=== PATIENT | female | born 1995 | race Caucasian/White ===

== ENCOUNTER 2019-04-27 18:34 | Outpatient (CLI) | payer MEDICAID, SELFPAY ==
--- NOTE | 2019-04-27 19:26 | XR_ITS ---
WS: [id number] CERVICAL SPINE 3 VIEWS HISTORY: BACK PAIN, NECK PAIN COMPARISON: None available. Mild straightening of the normal cervical lordosis with slight RIGHT tilting of the head. No fracture . C1 and C2 lateral masses are normally aligned. Odontoid is intact. Disc spaces and vertebral body heights are well-maintained. Soft tissues are normal. XR/XR cervical spine 2V* [id number] IMPRESSION: 1. Straightening of the normal cervical lordosis may be due to positioning or spasm. 2. No fracture.
--- NOTE | 2019-04-27 19:26 | XR_ITS ---
WS: [id number] LUMBAR SPINE: 3 VIEWS TECHNIQUE: AP, lateral and L5-S1 spot. HISTORY: BACK PAIN, NECK PAIN COMPARISON: None available. 5 nonrib-bearing vertebral bodies. Lumbar vertebra are normally aligned. No loss of disc space or vertebral body height. SI joints are symmetric bilaterally. No soft tissue abnormalities. XR/XR lumbar spine 2-3V* [id number] IMPRESSION: Normal lumbar spine.
== END 2019-04-27 18:35 | disposition home or self-care (01) ==
PROVIDERS: Family Provider Nurse Practitioner Family; PCP Nurse Practitioner Family; Visit Provider Nurse Practitioner Family
DX: M54.9 Dorsalgia, unspecified (principal); M54.2 Cervicalgia
CPT/HCPCS: 72040; 72100

== ENCOUNTER 2019-04-27 18:39 | Emergency (ER) | payer BC, MEDICAID, SELFPAY ==
[2019-04-27 19:11] VITALS: BP 145/104; PULSE 107; RESP 16; TEMP 37.6; O2SAT 97; BMI 39.4
== END 2019-04-27 20:28 | disposition home or self-care (01) ==
PROVIDERS: Emergency Provider Emergency Medicine; Family Provider Nurse Practitioner Family; PCP Nurse Practitioner Family
DX: Z53.21 Procedure and treatment not carried out due to patient leaving prior to being seen by health care provider (principal)
CPT/HCPCS: 99281

== ENCOUNTER → 2020-01-25 17:20 | Outpatient (BNVA) | payer BC, MEDICAID, SELFPAY | PROVIDERS: Family Provider Nurse Practitioner Family; PCP Nurse Practitioner Family; Visit Provider Nurse Practitioner Family | DX: G43.909 Migraine, unspecified, not intractable, without status migrainosus (principal) | CPT/HCPCS: 81025 ==

== ENCOUNTER → 2020-06-07 10:42 | Outpatient (BNVA) | payer MEDICAID, SELFPAY | PROVIDERS: Family Provider Nurse Practitioner Family; PCP Nurse Practitioner Family; Visit Provider Nurse Practitioner Women's Health | DX: Z34.81 Encounter for supervision of other normal pregnancy, first trimester (principal) | CPT/HCPCS: 83036; 84315; 84443; 84702; 85027; 86850; 86900 ==

== ENCOUNTER → 2020-07-04 13:46 | Outpatient (BNVA) | payer MEDICAID, SELFPAY | PROVIDERS: Family Provider Nurse Practitioner Family; PCP Nurse Practitioner Family; Visit Provider Obstetrics & Gynecology | DX: O21.9 Vomiting of pregnancy, unspecified (principal); O99.211 Obesity complicating pregnancy, first trimester; Z3A.10 10 weeks gestation of pregnancy | CPT/HCPCS: 80307; 84315; 86592; 86762; 86803; 87086; 87340 ==

== ENCOUNTER → 2020-07-11 09:24 | Outpatient (BNVA) | payer MEDICAID, SELFPAY | PROVIDERS: Family Provider Nurse Practitioner Family; PCP Nurse Practitioner Family; Visit Provider Obstetrics & Gynecology | DX: Z34.81 Encounter for supervision of other normal pregnancy, first trimester (principal) | CPT/HCPCS: 82950 ==

== ENCOUNTER → 2020-07-18 13:51 | Outpatient (BNVA) | payer MEDICAID, SELFPAY | PROVIDERS: Family Provider Nurse Practitioner Family; PCP Nurse Practitioner Family; Visit Provider Obstetrics & Gynecology | DX: Z34.80 Encounter for supervision of other normal pregnancy, unspecified trimester (principal); R80.9 Proteinuria, unspecified; N89.8 Other specified noninflammatory disorders of vagina | CPT/HCPCS: 84156; 84315; 87481; 87512; 87798; 87799; 88175 ==

== ENCOUNTER 2020-07-22 11:44 | Emergency (ER) | payer MEDICAID, SELFPAY ==
[2020-07-22 11:49] VITALS: BP 136/86; PULSE 123; RESP 18; TEMP 37.2; O2SAT 99; BMI 41.5
[2020-07-22 12:19] VITALS: BP 156/95; PULSE 109; RESP 16; O2SAT 99
--- NOTE | 2020-07-22 12:19 | PC.PHAR ---
PT STATES SHE STOP TAKING METFORMIN WHEN SHE FOUND OUT SHE WAS -EXT MED HISTORY SHOWS LAST FILLED ON 07/03/20 30D/S-PT STATES SHE HAS STILL BEEN FILLING SO SHE HAS WHEN SHE HAS THE BABY
--- NOTE | 2020-07-22 12:20 | ED_ITS ---
HPI - Head Injury General: Chief complaint: Back Pain/Injury Stated complaint: Back pain/ Time Seen by Provider: 07/22/20 12:04 Source: patient and family (significant other) Mode of arrival: ambulatory Limitations: no limitations History of Present Illness: HPI Narrative: This is a 25-year-old 2 para 0 who is at 12 weeks and 6 days today. She presents to the emergency department with complaints of low back pain. She has a chronic history of back pain and has had back surgery in 2013 for a slipped disc. This current symptoms started about 2 weeks ago and is gradually worsening. Paving Plant Operator gave her a prescription for Flexeril but it is not helping. She endorses weakness in her left lower extremity, paresthesia in the left lower extremity. She denies any fecal or urinary incontinence. No perianal anesthesia. No recent trauma. Associated symptoms: Reports nausea; Deny confusion, neck pain, numbness, syncope, tingling, vertigo, visual changes, vomiting or weakness Review of Systems General: Reports: 10 or more systems reviewed and unremarkable except in HPI and below Card: Denies: syncope GI: Reports: nausea; Denies: vomiting Musc: Reports: back pain; Denies: neck pain Neuro: Reports: headache(s); Denies: vertigo or confusion PFSH ED PFSH: Medical History (Reviewed 07/22/20 @ 12:23 by Kris Delgado MD, [facility] [place]) History of hypothyroidism (~2013) never been on medication Migraines w/o aura No pertinent past medical history neghx: htn,dm,dvt/pe,herpes ---denies partner with herpes PCP: Cassidy Gonsalez PCOS (polycystic ovarian syndrome) Surgical History (Reviewed 07/22/20 @ 12:23 by Kris Delgado MD, [facility] [place]) History of back surgery (~2013) ruptured disc L5-S1 History of tonsillectomy and adenoidectomy (~1997) Family History (Reviewed 07/22/20 @ 12:23 by Kris Delgado MD, [facility] [place]) Grandmother Breast cancer Paternal--dx age 50's Diabetes paternal Heart disease maternal Hypertension paternal, and maternal Grandfather Diabetes paternal Hypertension paternal Denies family history of Colon cancer Ovarian cancer Hypercholesteremia Uterine cancer Stroke Social History (Reviewed 07/22/20 @ 12:23 by Kris Delgado MD, [facility] [place]) Smoking and tobacco status: current every day smoker cigarettes Alcohol intake: never Female Reproductive History: Date of last menstrual period: 04/26/19 Physical Exam Const: COMMON NORMALS: no acute distress, average body habitus, patient oriented x3, no limitations, healthy appearing, alert and well nourished NUTRITIONAL APPEARANCE: obese morbidly obese HENMT: COMMON NORMALS: normocephalic, atraumatic and moist oral mucous membranes HEAD & SCALP: normocephalic and atraumatic Neck/C-Spine: COMMON NORMALS: full ROM, supple, no meningeal signs, no JVD and No carotid bruits Resp: COMMON NORMALS: normal respiratory effort, No retractions, No use of accessory muscles, clear to auscultation bilaterally and percussion normal AUSCULTATION: clear to auscultation bilaterally PERCUSSION: percussion normal Cardio: COMMON NORMALS: no JVD, regular rate, regular rhythm, S1 normal heart sound present, S2 normal heart sound present, No gallops present (Cardio), No clicks present (Cardio), No murmurs present (Cardio), No rub (Cardio) and Peripheral pulses 2+ throughout RATE: regular rate RHYTHM: regular rhythm HEART SOUNDS: S1 normal heart sound present and S2 normal heart sound present PERIPHERAL PULSES: Peripheral pulses 2+ throughout GI: COMMON NORMALS: Normal to inspection, nondistended, normoactive bowel sounds present, Soft to palpation, non-tender, No hepatosplenomegaly present, no masses and no bruits PALPATION: Yes Soft to palpation and Yes No hepatosplenomegaly present Back/Pelvis: LUMBAR SPINE/LOWER BACK: Yes normal to inspection, Yes ROM limited, Yes lumbar spinal tenderness (lower lumbar spine), Yes paraspinal muscle tenderness Lumbar paraspinal muscle tenderness: left and Yes straight leg raise positive left SACROILIAC JOINTS: Yes SI joint(s) abnormal SI joint details: tender to palpation (on the left) Extremity: COMMON NORMALS: normal to inspection, full ROM, capillary refill normal, no calf tenderness and no pedal edema Neuro: COMMON NORMALS: patient oriented x3 SENSORIUM/ORIENTATION: Yes alert MENINGEAL SIGNS: Yes no meningeal signs Skin: COMMON NORMALS: no rashes or lesions noted, no wounds, turgor normal, no jaundice, no petechiae and no mottling GENERAL SKIN EXAM: no rashes or lesions noted and turgor normal Course Reevaluation(s): Reevaluation #1: Discussed that her symptoms may be secondary to a low back issue and may benefit from imaging such as x-ray or CT scan. Because she is she declined imaging at this time as she has had a prior miscarriage so she is being very careful. Time: 12:31 Reevaluation #2: Pain is much improved and she thinks she can go home. We will discharge her home with a prescription for gabapentin. She is used this in the past. She will call her surveillance analyst tomorrow for follow-up and further advice. Time: 13:10 Vital Signs: Vital signs: Vital Signs Temperature 98.9 F 07/22/20 11:49 Pulse Rate 109 H 07/22/20 12:19 Respiratory Rate 16 07/22/20 12:43 Blood Pressure 156/95 07/22/20 12:19 Pulse Oximetry 99 07/22/20 12:19 MDM - Head Injury MDM Narrative: Medical decision making narrative: 25-year-old female patient with about 13 weeks presents with low back pain. She has a history of low back pain and has had back surgery in the past. Evaluation is consistent with lumbar radiculopathy. No red flags indicating urgent need for an MRI. She declined x-ray as she is worried about radiation exposure to the baby. Pain improved following intravenous pain medication and she is discharged home with a prescription for gabapentin. She is to follow-up with her surveillance analyst. Medical Records: Attestation: I reviewed the patient's medical records. Discharge Plan Discharge Patient Disposition: Home Clinical Impression: Lumbar radiculopathy Condition: Stable Prescriptions: New gabapentin 100 mg capsule 100 mg PO TID Qty: 30 RF: 0 Continued prenat.vits,dameon,lwu-chys-igont Tablet 1 tab PO BEDTIME RF: 0 metronidazole [Flagyl] 500 mg tablet 500 mg PO BID Qty: 14 RF: 0 metformin 500 mg tablet See Rx Instructions .ROUTE .COMPLEX RF: 0 cyclobenzaprine 10 mg tablet 10 mg PO TID PRN (Reason: Muscle Spasm) RF: 0 Zofran 4 mg tablet 4 mg PO Q6H PRN (Reason: Nausea And Vomiting) RF: 0 Discharge Orders: Discharge ED (Routine); Ordered 07/22/20 Ordered By: Kris Delgado Referrals: Ceci Thao MD [Physician] - 1-3 days Gonsalez,VILMA Moran [Primary Care Provider] - Discharge Diet: Usual diet Discharge Activity: Increase activity as tolerated Patient Instructions: Lumbar Radiculopathy (ED) Activity Restrictions/Additional Instructions: Return for any new or worsening symptoms. Follow-up with your surveillance analyst within 3 days. Take the gabapentin as needed. Avoid strenuous activity and lifting any weights. Stand Alone Forms: Work/School Release Coding Level of Care Code ED Career Technical Counselor for Chg Fwd Exam Comprehensive
[2020-07-22] MEDS: ondansetron 2 mg/ML SDV 2 mL 4 MG IVP (12:37)
[2020-07-22] MEDS: orphenadrine 30 mg/mL Inj 2 mL 60 MG IVP (12:39)
[2020-07-22 12:43] VITALS: RESP 16
[2020-07-22] MEDS: morphine 4 mg/mL SDV 1 mL IVP (12:43)
== END 2020-07-22 13:24 | disposition home or self-care (01) ==
PROVIDERS: Emergency Provider Family Medicine; PCP Nurse Practitioner Family
DX: M54.16 Radiculopathy, lumbar region (principal); F17.210 Nicotine dependence, cigarettes, uncomplicated
CPT/HCPCS: 96374; 96375; 99283; J2270; J2360; J2405

== ENCOUNTER → 2020-07-30 13:45 | Outpatient (BNVA) | payer MEDICAID, SELFPAY | PROVIDERS: PCP Nurse Practitioner Family; Visit Provider Obstetrics & Gynecology | DX: O16.9 Unspecified maternal hypertension, unspecified trimester (principal); O99.891 Other specified diseases and conditions complicating pregnancy; M54.9 Dorsalgia, unspecified; N76.0 Acute vaginitis; B96.89 Other specified bacterial agents as the cause of diseases classified elsewhere; W57.XXXA Bitten or stung by nonvenomous insect and other nonvenomous arthropods, initial encounter; Z3A.14 14 weeks gestation of pregnancy | CPT/HCPCS: 84315; 87491; 87591 ==

== ENCOUNTER → 2020-10-24 12:01 | Outpatient (BNVA) | payer MEDICAID, SELFPAY | PROVIDERS: PCP Nurse Practitioner Family; Visit Provider Nurse Practitioner Women's Health | DX: Z34.82 Encounter for supervision of other normal pregnancy, second trimester (principal); F12.90 Cannabis use, unspecified, uncomplicated; G43.909 Migraine, unspecified, not intractable, without status migrainosus; M54.9 Dorsalgia, unspecified; N76.0 Acute vaginitis; B96.89 Other specified bacterial agents as the cause of diseases classified elsewhere; Z86.39 Personal history of other endocrine, nutritional and metabolic disease; B37.9 Candidiasis, unspecified | CPT/HCPCS: 80307; 84315 ==

== ENCOUNTER → 2020-11-05 08:33 | Outpatient (BNVA) | payer MEDICAID, SELFPAY | PROVIDERS: PCP Nurse Practitioner Family; Visit Provider Obstetrics & Gynecology | DX: Z34.82 Encounter for supervision of other normal pregnancy, second trimester (principal) | CPT/HCPCS: 82950; 84315; 85025 ==

== ENCOUNTER → 2020-11-08 08:48 | Outpatient (BNVA) | payer MEDICAID, SELFPAY | PROVIDERS: PCP Nurse Practitioner Family; Visit Provider Obstetrics & Gynecology | DX: Z34.82 Encounter for supervision of other normal pregnancy, second trimester (principal) | CPT/HCPCS: 82951; 82952 ==

== ENCOUNTER 2020-12-03 10:07 | Outpatient (CLI) | payer MEDICAID, SELFPAY ==
[2020-12-03 10:20] VITALS: BMI 42.7
[2020-12-03 10:22] VITALS: BP 116/69; PULSE 142
[2020-12-03 10:58] VITALS: BP 117/67; PULSE 115
[2020-12-03 11:18] VITALS: BP 117/67; PULSE 115; RESP 18; TEMP 36.7
== END 2020-12-03 11:08 | disposition home or self-care (01) ==
LOC: OPOB 10:09 → OBGYN 10:10
PROVIDERS: PCP Nurse Practitioner Family; Visit Provider Obstetrics & Gynecology
DX: O26.899 Other specified pregnancy related conditions, unspecified trimester (principal); Z3A.00 Weeks of gestation of pregnancy not specified
CPT/HCPCS: 59025; 99211

== ENCOUNTER 2020-12-06 08:38 | Outpatient (CLI) | payer MEDICAID, SELFPAY ==
--- NOTE | 2020-12-06 08:56 | US_ITS ---
WS: [id number] ULTRASOUND OB LIMITED TECHNIQUE: Limited ultrasound examination of the fetus. CLINICAL INFORMATION: GESTATIONAL DIABETES COMPARISON: None. FINDINGS: Closed Cervix measures 3.2 cm Single interuterine gestation. presentation is vertex Placental location is anterior. Placenta grade: 1-2 heart rate 131 BPM. Normal NGUYỄN 15.4 cm greater than the median. Biophysical profile 8 out of 8. breathin movement: 2 tone: 2 Amniotic fluid: 2 IMPRESSION Normal biophysical profile 8 out of 8
== END 2020-12-06 08:39 | disposition home or self-care (01) ==
LOC: RAD 08:47
PROVIDERS: PCP Nurse Practitioner Family; Visit Provider Obstetrics & Gynecology
DX: O24.419 Gestational diabetes mellitus in pregnancy, unspecified control (principal)
CPT/HCPCS: 76819; 84315

== ENCOUNTER → 2020-12-20 10:16 | Outpatient (BNVA) | payer MEDICAID, SELFPAY | PROVIDERS: PCP Nurse Practitioner Family; Visit Provider Obstetrics & Gynecology | DX: Z34.90 Encounter for supervision of normal pregnancy, unspecified, unspecified trimester (principal); R81 Glycosuria | CPT/HCPCS: 36416; 82962; 84315 ==

== ENCOUNTER → 2021-01-03 09:34 | Outpatient (BNVA) | payer MEDICAID, SELFPAY | PROVIDERS: PCP Nurse Practitioner Family; Visit Provider Obstetrics & Gynecology | DX: Z34.90 Encounter for supervision of normal pregnancy, unspecified, unspecified trimester (principal) | CPT/HCPCS: 84315; 87081 ==

== ENCOUNTER → 2021-01-10 14:01 | Outpatient (BNVA) | payer MEDICAID, SELFPAY | PROVIDERS: PCP Nurse Practitioner Family; Visit Provider Obstetrics & Gynecology | DX: Z34.90 Encounter for supervision of normal pregnancy, unspecified, unspecified trimester (principal) | CPT/HCPCS: 84315; 87086 ==

== ENCOUNTER 2021-01-17 10:23 | Outpatient (CLI) | payer MEDICAID, SELFPAY ==
[2021-01-17 10:36] VITALS: RESP 15; TEMP 36.8
[2021-01-17 10:39] VITALS: BP 127/89; PULSE 139
[2021-01-17 10:43] VITALS: BMI 44.6
[2021-01-17 10:54] VITALS: BP 128/71; PULSE 131
== END 2021-01-17 11:05 | disposition home or self-care (01) ==
LOC: OPOB 10:24 → OBGYN 10:25
PROVIDERS: PCP Nurse Practitioner Family; Visit Provider Obstetrics & Gynecology
DX: O24.419 Gestational diabetes mellitus in pregnancy, unspecified control (principal); Z3A.00 Weeks of gestation of pregnancy not specified
CPT/HCPCS: 59025; 84315

== ENCOUNTER → 2021-01-21 09:23 | Outpatient (BNVA) | payer MEDICAID, SELFPAY | PROVIDERS: PCP Nurse Practitioner Family; Visit Provider Obstetrics & Gynecology | DX: Z34.90 Encounter for supervision of normal pregnancy, unspecified, unspecified trimester (principal); Z20.822 Contact with and (suspected) exposure to COVID-19 | CPT/HCPCS: 84315; 87635 ==

== ENCOUNTER → 2021-01-28 10:30 | Outpatient (BNVA) | payer MEDICAID, SELFPAY | PROVIDERS: PCP Nurse Practitioner Family; Visit Provider Obstetrics & Gynecology | DX: Z34.90 Encounter for supervision of normal pregnancy, unspecified, unspecified trimester (principal); Z20.822 Contact with and (suspected) exposure to COVID-19 | CPT/HCPCS: 84315; 87635 ==

== ENCOUNTER 2021-02-01 13:00 | Inpatient (IN) | payer MEDICAID, SELFPAY ==
[2021-02-01] VITALS (10 sets, daily range): BP systolic 128–174; BP diastolic 66–97; PULSE 84–127; RESP 16; TEMP 36.3–36.7; BMI 45.2
[2021-02-01] MEDS: miSOPROStol 100 mcg tablet 25 MCG VAGINAL ×3 (12:57→21:33)
[2021-02-01 13:20] LABS: Basophils % 0.2 %; Eosinophils # 0.1 10^3/uL (0.0-0.8); Eosinophils % 0.8 %; Hematocrit 36.8 % (37.0-47.0); Lymphocytes % 16.7 %; Mean Corpuscular HGB Conc 32.6 g/dL (30.0-36.0); Mean Corpuscular Hemoglobin 26.7 pg (28.0-34.0); Mean Platelet Volume 11.2 fL (7.4-10.4); Monocytes # 0.6 10^3/uL (0.2-0.9); Monocytes % 5.3 %; Neutrophils # 9.31 10^3/uL (1.8-7.7); Neutrophils % 76.7 %; Nucleated Red Blood Cells % 0 %; Platelet Count 279 10^3/cmm (130-400); Red Blood Count 4.49 10^6/uL (4.1-5.3); Red Cell Distribution Width 15.8 % (12.1-15.1); White Blood Count 12.2 10^3/uL (4.0-10.0)
[2021-02-01 13:46] LABS: Amphetamines Screen Urine Negative (Negative); Barbiturates Screen Urine Negative (Negative); Benzodiazepines Screen Urine Negative (Negative); Cocaine Screen Urine Negative (Negative); Opiate Screen Urine Negative (Negative); PCP Screen Urine Negative (Negative); THC Screen Urine Negative (Negative)
[2021-02-01 14:05] LABS: Glucose Point of Care 91 mg/dL (70-110)
[2021-02-01 15:30] LABS: Glucose Point of Care 96 mg/dL (70-110)
[2021-02-01 16:44] LABS: Glucose Point of Care 85 mg/dL (70-110)
[2021-02-01 17:39] LABS: Glucose Point of Care 73 mg/dL (70-110)
--- NOTE | 2021-02-01 19:23 | PM.OPHPUD ---
Labor & Delivery H&P Update Date of Procedure: February 01, 2021 Date H&P Performed: 01/28/21 H&P update information: I have reviewed H&P completed within last 30 days, I have examined patient prior to procedure and No changes to prior documentation Changes to previous documentation: The patient presents for induction at term. She has had no cervical change. Admission Diagnosis: iup at 40 4/7/ induction for post dates. Related Problem List Diagnoses (1) Gestational diabetes: (2) Hypertension affecting : (3) Obesity affecting :
[2021-02-01 21:45] LABS: Glucose Point of Care 88 mg/dL (70-110)
[2021-02-02] VITALS (39 sets, daily range): BP systolic 110–164; BP diastolic 60–92; PULSE 76–104; RESP 18; TEMP 36.3–36.6
[2021-02-02] MEDS: miSOPROStol 100 mcg tablet 25 MCG VAGINAL (03:03)
[2021-02-02 03:32] LABS: Glucose Point of Care 86 mg/dL (70-110)
[2021-02-02 07:27] LABS: Glucose Point of Care 88 mg/dL (70-110)
--- NOTE | 2021-02-02 09:17 | PM.PN ---
Vitals/I&O/Wt Last Vital Signs Temp 97.8 F 02/02/21 17:23 Pulse 95 02/03/21 09:14 Resp 17 02/03/21 06:54 BP 152/92 02/03/21 09:14 Pulse Ox 97 02/03/21 09:13 02/02/21 02/03/21 02/03/21 22:59 06:59 14:59 Intake Total 1249.966 / 1301.516 888.266 / 2189.782 514.583 / 514.583 Balance 1249.966 / 1301.516 888.266 / 2189.782 514.583 / 514.583 Weight last 48 hrs Weight 289 lb Physical Exam Narrative: EXAM NARRATIVE: The patient has received 4 doses of cytotec overnight. She will have breakfast this morning and then pitocin will be started. strip remains overall very reassuring. Const: COMMON NORMALS: no acute distress, patient oriented x3, no limitations and alert GENERAL APPEARANCE: cooperative, comfortable, well kempt and well developed ORIENTATION/CONSCIOUSNESS: Yes awake, Yes oriented to person, Yes oriented to place and Yes oriented to time Resp: COMMON NORMALS: normal respiratory effort EFFORT & INSPECTION: Yes able to speak in complete sentences GI: COMMON NORMALS: Soft to palpation and non-tender PALPATION: Yes Soft to palpation Extremity: COMMON NORMALS: no clubbing, cyanosis or edema and no calf tenderness Neuro: COMMON NORMALS: patient oriented x3 SENSORIUM/ORIENTATION: Yes alert, Yes oriented to person, Yes oriented to place and Yes oriented to time Psych: APPEARANCE: Yes well kempt Data : 02/01/21 12:40 A&P Assessment and plan (1) Gestational diabetes: induction for post dates continue with pitocin induction anticipate Status: Acute (2) Hypertension affecting : Status: Acute Qualifiers: Trimester: second trimester Qualified Code(s): O16.2 - Unspecified maternal hypertension, second trimester (3) Obesity affecting : Status: Acute Qualifiers: Trimester: second trimester Qualified Code(s): O99.212 - Obesity complicating , second trimester (4) Tobacco use in : Status: Acute Qualifiers: Trimester: second trimester Qualified Code(s): O99.332 - Smoking (tobacco) complicating , second trimester (5) Supervision of normal : Status: Acute Qualifiers: Normal : other normal Trimester: second trimester Qualified Code(s): Z34.82 - Encounter for supervision of other normal , second trimester Attestations Medical Necessity Statement*: The patient is being induced Coding Level of Care Code Acute Baseball Scout for Chg Fwd Diagnoses Gestational diabetes O24.419 Hypertension affecting O16.2 Trimester: second trimester Obesity affecting O99.212 Trimester: second trimester Tobacco use in O99.332 Trimester: second trimester Supervision of normal Z34.82 Normal : other normal Trimester: second trimester
[2021-02-02] MEDS: lactated ringers 1,000 ML 125 ML IV ×2 (09:21→17:22)
[2021-02-02] MEDS: oxytocin 30 UNIT/500 ML BAG IV (09:21)
[2021-02-02 11:23] LABS: Glucose Point of Care 88 mg/dL (70-110)
[2021-02-02 15:52] LABS: Glucose Point of Care 95 mg/dL (70-110)
[2021-02-02] MEDS: acetaminophen 325 mg Tablet 650 MG PO (15:57)
[2021-02-02 19:13] LABS: Glucose Point of Care 115 mg/dL (70-110)
[2021-02-02 23:41] LABS: Glucose Point of Care 108 mg/dL (70-110)
[2021-02-03] VITALS (125 sets, daily range): BP systolic 102–159; BP diastolic 50–103; PULSE 76–161; RESP 16–18; TEMP 36.6–36.8; O2SAT 96–100
[2021-02-03 03:36] LABS: Glucose Point of Care 86 mg/dL (70-110)
[2021-02-03] MEDS: lactated ringers 1,000 ML 125 ML IV ×3 (04:16→12:28)
[2021-02-03] MEDS: calcium carbonate 500 mg Chew Tablet 1000 MG PO (04:40)
[2021-02-03] MEDS: fentaNYL 50 mcg/mL INJ 2mL IVP (06:54)
[2021-02-03 07:33] LABS: Glucose Point of Care 84 mg/dL (70-110)
--- NOTE | 2021-02-03 08:34 | ANES.PREANE2 ---
Pre-Anesthetic Assessment Pre-Anesthetic Assessment: Height/Weight: Height 1.7 m Weight 131.088 kg Temp Pulse Resp BP 97.8 F 80 17 108/58 02/02/21 17:23 02/03/21 00:03 02/03/21 06:54 02/03/21 00:03 Preop Diagnosis: labor pain Proposed Procedure: epidural Familial anesthetic complications: none Was Beta Real taken within 24 hours: N/A Was Clonidine taken within 24 hours: N/A Social: Social History: No alcohol Exam: Pre-Anes Outpt Exam: alert, oriented x 3, clear to auscultation bilaterally and regular rate & rhythm Airway: Submandibular: WNL Cervical ROM: WNL MP: 2 Dentition: Full Pulmonary: Pulmonary: None reported CV/HEM: CV/HEM: Anemia and HTN : : None reported Hepatic: Hepatic: None reported GI: GI: GERD Metabolic: Metabolic: DM (gestational) and Morbid obesity Musc/skel: Musc/skel: None reported Neuropsych: Neuropsych: PINTO Anesthetic Plan: ASA status: 2 Anesthesia: Regional (specify below) Risk of > 500 ml blood loss (7ml/kg in children): No Meds/Allergies Current Medications: Current Medications Generic Name Dose Route Start Last Admin Trade Name Freq PRN Reason Stop Dose Admin Acetaminophen 650 mg 02/01/21 12:40 02/02/21 15:57 Acetaminophen 32 5 Mg Tablet PO 650 mg Q6H PRN Administration MILD TO MODERATE PAIN Fentanyl 25 - 100 mcg 02/01/21 12:40 02/03/21 06:54 Fentanyl 50 Mcg/ Ml Inj 2ml IVP 25 mcg Q1H PRN Administration SEVERE PAIN Oxytocin 30 unit in 500 ml s @ 1 mls/hr 02/02/21 09:15 02/03/21 03:30 Pitocin IV 20 milliunit/min .Q24H EARL 20 mls/hr Titration Protocol 1 MILLIUNIT/MIN Lactated Ringer's 1,000 mls @ 125 m ls/hr 02/02/21 09:15 02/03/21 08:23 Lactated Ringers IV 125 mls/hr .Q8H EARL Administration PFSH Anesthesia PFSH: Medical History History of hypothyroidism (~2013) never been on medication Migraines w/o aura No pertinent past medical history neghx: htn,dm,dvt/pe,herpes ---denies partner with herpes PCP: Cassidy Gonsalez PCOS (polycystic ovarian syndrome) Surgical History History of back surgery (~2013) ruptured disc L5-S1 History of tonsillectomy and adenoidectomy (~1997) Family History Grandmother Breast cancer Paternal--dx age 50's Diabetes paternal Heart disease maternal Hypertension paternal, and maternal Grandfather Diabetes paternal Hypertension paternal Denies family history of Colon cancer Ovarian cancer Hypercholesteremia Uterine cancer Stroke Social History Smoking and tobacco status: current every day smoker cigarettes Packs smoked per day: 0.5 Alcohol intake: never Female Reproductive History: : 2 Data Anesthesia CBC & Chem 7: 02/01/21 12:40 Other Labs: Laboratory Results - last 48 hr 02/01/21 02/01/21 02/01/21 12:30 12:40 14:00 WBC 12.2 H RBC 4.49 Hgb 12.0 Hct 36.8 L MCV 82.0 MCH 26.7 L MCHC 32.6 RDW 15.8 H Plt Count 279 MPV 11.2 H Neut % (Auto) 76.7 Lymph % (Auto) 16.7 [place] % (Auto) 5.3 Eos % (Auto) 0.8 Baso % (Auto) 0.2 Neut # (Auto) 9.31 H Lymph # (Auto) 2.0 [place] # (Auto) 0.6 Eos # (Auto) 0.1 Baso # (Auto) 0.0 Nucleated RBC % (auto) 0 Nucleated RBCs # 0.0 POC Glucose 91 Urine Opiates Screen Negative Ur Barbiturates Screen Negative Ur Phencyclidine Scrn Negative Ur Amphetamines Screen Negative U Benzodiazepines Scrn Negative Urine Cocaine Screen Negative U Marijuana (THC) Screen Negative 02/01/21 02/01/21 02/01/21 15:23 16:36 17:35 WBC RBC Hgb Hct MCV MCH MCHC RDW Plt Count MPV Neut % (Auto) Lymph % (Auto) [place] % (Auto) Eos % (Auto) Baso % (Auto) Neut # (Auto) Lymph # (Auto) [place] # (Auto) Eos # (Auto) Baso # (Auto) Nucleated RBC % (auto) Nucleated RBCs # POC Glucose 96 85 73 Urine Opiates Screen Ur Barbiturates Screen Ur Phencyclidine Scrn Ur Amphetamines Screen U Benzodiazepines Scrn Urine Cocaine Screen U Marijuana (THC) Screen 02/01/21 02/02/21 02/02/21 21:40 03:28 07:23 WBC RBC Hgb Hct MCV MCH MCHC RDW Plt Count MPV Neut % (Auto) Lymph % (Auto) [place] % (Auto) Eos % (Auto) Baso % (Auto) Neut # (Auto) Lymph # (Auto) [place] # (Auto) Eos # (Auto) Baso # (Auto) Nucleated RBC % (auto) Nucleated RBCs # POC Glucose 88 86 88 Urine Opiates Screen Ur Barbiturates Screen Ur Phencyclidine Scrn Ur Amphetamines Screen U Benzodiazepines Scrn Urine Cocaine Screen U Marijuana (THC) Screen 02/02/21 02/02/21 02/02/21 11:20 15:49 19:09 WBC RBC Hgb Hct MCV MCH MCHC RDW Plt Count MPV Neut % (Auto) Lymph % (Auto) [place] % (Auto) Eos % (Auto) Baso % (Auto) Neut # (Auto) Lymph # (Auto) [place] # (Auto) Eos # (Auto) Baso # (Auto) Nucleated RBC % (auto) Nucleated RBCs # POC Glucose 88 95 115 H Urine Opiates Screen Ur Barbiturates Screen Ur Phencyclidine Scrn Ur Amphetamines Screen U Benzodiazepines Scrn Urine Cocaine Screen U Marijuana (THC) Screen 02/02/21 02/03/21 02/03/21 23:30 03:32 07:30 WBC RBC Hgb Hct MCV MCH MCHC RDW Plt Count MPV Neut % (Auto) Lymph % (Auto) [place] % (Auto) Eos % (Auto) Baso % (Auto) Neut # (Auto) Lymph # (Auto) [place] # (Auto) Eos # (Auto) Baso # (Auto) Nucleated RBC % (auto) Nucleated RBCs # POC Glucose 108 86 84 Urine Opiates Screen Ur Barbiturates Screen Ur Phencyclidine Scrn Ur Amphetamines Screen U Benzodiazepines Scrn Urine Cocaine Screen U Marijuana (THC) Screen Cardiac Studies: No Data to Display
--- NOTE | 2021-02-03 08:40 | PC.NURSE ---
Edilson in room with another patient doing epidural prior to this epidural
--- NOTE | 2021-02-03 09:21 | P.PN_ITS ---
Vitals/I&O/Wt Last Vital Signs Temp 97.8 F 02/02/21 17:23 Pulse 88 02/03/21 09:18 Resp 17 02/03/21 06:54 BP 148/92 02/03/21 09:17 Pulse Ox 98 02/03/21 09:18 02/02/21 02/03/21 02/03/21 22:59 06:59 14:59 Intake Total 1249.966 / 1301.516 888.266 / 2189.782 514.583 / 514.583 Balance 1249.966 / 1301.516 888.266 / 2189.782 514.583 / 514.583 Weight last 48 hrs Weight 289 lb Physical Exam Narrative: EXAM NARRATIVE: The patient has received pitocin all day yesterday. She had dinner and then pitocin was restarted. She is having regular contractions and has received an epidural for pain control. Const: COMMON NORMALS: no acute distress, patient oriented x3, no limitations and alert GENERAL APPEARANCE: cooperative, comfortable, well kempt and well developed ORIENTATION/CONSCIOUSNESS: Yes awake, Yes oriented to person, Yes oriented to place and Yes oriented to time Resp: COMMON NORMALS: normal respiratory effort EFFORT & INSPECTION: Yes able to speak in complete sentences GI: COMMON NORMALS: Soft to palpation and non-tender PALPATION: Yes Soft to palpation Extremity: COMMON NORMALS: no calf tenderness Neuro: COMMON NORMALS: patient oriented x3 SENSORIUM/ORIENTATION: Yes alert, Yes oriented to person, Yes oriented to place and Yes oriented to time Psych: APPEARANCE: Yes well kempt Data : 02/01/21 12:40 A&P Assessment and plan (1) Gestational diabetes: continue with pitocin induction anticipate Status: Acute (2) Obesity affecting : Status: Acute Qualifiers: Trimester: second trimester Qualified Code(s): O99.212 - Obesity complicating , second trimester (3) Supervision of normal : Status: Acute Qualifiers: Normal : other normal Trimester: second trimester Qualified Code(s): Z34.82 - Encounter for supervision of other normal , second trimester (4) Hypertension affecting : Status: Acute Qualifiers: Trimester: second trimester Qualified Code(s): O16.2 - Unspecified maternal hypertension, second trimester Attestations Medical Necessity Statement*: the patient has already been here two nights. Coding Level of Care Code Acute Supercalender Operator Helper for Chg Fwd Diagnoses Gestational diabetes O24.419 Obesity affecting O99.212 Trimester: second trimester Supervision of normal Z34.82 Normal : other normal Trimester: second trimester Hypertension affecting O16.2 Trimester: second trimester
--- NOTE | 2021-02-03 10:06 | ANES.PROC ---
Anesthesia Procedures Procedure/Date: 02/03/21 epidural Procedure Narrative: epidural complete, bolus given, epidural pump initiated with CHILD'S NURSE education given, vitals taken during procedure using OBIX system and satisfactory throughout, patient admits to decrease pain, report of procedure to OB RN Epidural: Time Out Performed: Yes Consents Signed: Procedure Consent Consent: requested by attending/covering physician, from patient, risks and benefits reviewed and patient agrees to proceed Lumbar Level: L3-L4 Epidural position: sitting Epidural procedure: sterile prep of area, 1% lidocaine to numb the area (10 mL), 18 g needle, negative for paresthesia passed, neg for paresthesia, test dose given, 1.5% xylocaine 1:200k epi (5 mL), 0.2% Ropivacaine bolus ml (5 mL), placed PCEA, no systemic response, sterile dressing applied, L.U.D. no apparent complications and 0.2% Ropiavacaine @ mls/hr (13 mL/hr) Additional Comments: attempts x 3 no bleeding or hematoma noted at previous injection sites
[2021-02-03 10:59] LABS: Glucose Point of Care 66 mg/dL (70-110)
[2021-02-03 15:07] LABS: Glucose Point of Care 77 mg/dL (70-110)
[2021-02-03] MEDS: acetaminophen 325 mg Tablet 650 MG PO (15:07)
--- NOTE | 2021-02-03 19:05 | PM.PN ---
Vitals/I&O/Wt Last Vital Signs Temp 97.8 F 02/03/21 13:00 Pulse 134 H 02/03/21 18:59 Resp 18 02/03/21 13:00 BP 102/56 02/03/21 18:59 Pulse Ox 98 02/03/21 12:03 02/03/21 02/03/21 02/03/21 06:59 14:59 22:59 Intake Total 888.266 / 2189.782 1173.233 / 1173.233 108.45 / 1281.683 Balance 888.266 / 2189.782 1173.233 / 1173.233 108.45 / 1281.683 Physical Exam Narrative: EXAM NARRATIVE: The patient has received pitocin all day. Initally, she made some cervical change. She received an epidural for pain control and she had SROM of thick meconium fluid. A scalp electrode was placed. Her cervix was 4-5/90/-3. She has not made any change since approximately noon. She has had a contraction pattern that was difficult to monitor at times, due to patient body habitus. The status has remained overall very reassuring. We have spoken about proceeding to for failure to progress. She would like to proceed. We discussed risks and benefits of . Consent has been signed. We will proceed. Urinary Catheter Management^: Montez: Cath Placed During This Visit: yes Urinary Catheter Date of Insertion: 02/03/21 Urinary Catheter Time of Insertion: 10:20 Data : 02/01/21 12:40 A&P Assessment and plan (1) Failure to progress in labor: proceeding to primary Risks, benefits and alternatives to procedure were discussed with the patient including but not limited to: pain, bleeding, infection, development of a blood clot or pulmonary embolism, damage to bowel, bladder, ureters, blood vessels, formation of scar tissue or even . . These are the most common complications, but there may be other, unforseen complications that could arise during surgery. The patient accepts these risks and desires to proceed. Status: Acute Attestations Medical Necessity Statement*: The patient has already been here two midnights. Coding Level of Care Code Acute Hot Mill Observer for g Fwd Diagnoses Failure to progress in labor O62.2
[2021-02-03] MEDS: famotidine 20 mg/2 mL INJ IVP (19:15)
[2021-02-03] MEDS: citric acid-sodium citrate 30 mL UDC PO (19:15)
[2021-02-03] MEDS: metoclopramide 5 mg/mL SDV 2 mL 10 MG IVP (19:16)
--- NOTE | 2021-02-03 20:54 | PM.OP ---
Operative Report Date of procedure: February 03, 2021 Pre-op Diagnosis: failure to progress in labor Post-op diagnosis: same Post-op Findings: term female in the cephalic presentation. cephalopelvic disproportion Procedure Done: primary Specimens removed/disposition: placenta Pathology: none sent Surgeon: Ceci Thao Anesthesia: Epidural Estimated blood loss (mL): 200 IV fluids (mL): 1,500 Urine output (mL): 50 Complications: none Condition: stable Disposition: floor Brief History: The patient was admitted for induction for post dates. She failed to progress past 5 cm dilation. A was performed. Procedure: The patient was taken to the operating room where spinal anesthesia was administered and found to be adequate. She was prepped and draped in the normal sterile fashion in the dorsal supine position with a leftward tilt. A Pfannenstiel skin incision was made and carried down to the underlying layer of fascia. The fascia was nicked in the midline and extended laterally with the Becerril scissors. The fascia was then tented up and the rectus muscles dissected off sharply. The rectus muscles were and the peritoneum entered bluntly with the digit. The peritoneal incision was extended superiorly and inferiorly with good visualization of the bladder. The Mark O retractor was placed. It was clear of any bowel or omentum. The bladder flap was created sharply with the Metzenbaum scissors. A low transverse uterine incision was made and carried down to the bag of water. The bag of water was ruptured with thick meconium presentand the uterine incision extended cephalocaudad. The scalp was grasped and brought through the incision. The nose and mouth were bulb suctioned. The shoulders and body delivered atraumatically. The umbilical cord was bunched up on the baby's abdomen during delivery. The baby had poor tone when she was delivered. The cord was immediatley clamped and cut by the tech as I dried and stimulated the baby. The baby was handed immediately to the waiting social work associate. The placenta was delivered by expression. The uterus was exteriorized and cleared of all clots and debris. The uterine incision was closed with 0 Vicryl in a running fashion. A second imbricating layer of 3-0 Monocryl was used to close the uterus. The bladder flap was closed with 3-0 Monocryl. There was excellent hemostasis. The Mark O retractor was removed. The uterus was returned to the abdomen. The peritoneum was closed with 3-0 Monocryl, incorporating the rectus muscle. The fascia was closed with 0 Vicryl in 2 separate sutures overlapping in the midline. The skin was closed with absorbable sujata. Apgars on baby 4 at 1 minute and 9 at 5 minutes. weight pending. Mother and baby were stable post delivery.
--- NOTE | 2021-02-03 20:55 | P.PCN_ITS ---
PACU note PACU note: VSS, Good respiratory effort, report to UTILITY TECH Post-Anesthesia Exam: awake
--- NOTE | 2021-02-03 20:55 | PM.PACU ---
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
[2021-02-04] VITALS (9 sets, daily range): BP systolic 111–157; BP diastolic 65–87; PULSE 71–106; RESP 16–20; TEMP 36.6–37.1; O2SAT 97–98
[2021-02-04] MEDS: dextrose 5%-lactated ringers 1,000 ML 125 ML IV (00:15)
[2021-02-04] MEDS: ketorolac 30 mg/mL INJ IVP ×3 (03:35→15:10)
--- NOTE | 2021-02-04 07:53 | P.PN_ITS ---
Vitals/I&O/Wt Last Vital Signs Temp 98.3 F 02/03/21 22:30 Pulse 85 02/04/21 01:15 Resp 16 02/04/21 01:15 BP 118/72 02/04/21 01:15 Pulse Ox 97 02/03/21 23:00 02/03/21 02/04/21 02/04/21 22:59 06:59 14:59 Intake Total 2781.985 / 3955.218 Output Total 700 / 700 Balance 2081.985 / 3255.218 Physical Exam Narrative: EXAM NARRATIVE: The patient received is doing well this morning. Pain is well controlled. Const: COMMON NORMALS: no acute distress, patient oriented x3, no limitations, alert and well nourished GENERAL APPEARANCE: cooperative, comfortable, well kempt and well developed ORIENTATION/CONSCIOUSNESS: Yes awake, Yes oriented to person, Yes oriented to place and Yes oriented to time Resp: COMMON NORMALS: normal respiratory effort EFFORT & INSPECTION: Yes able to speak in complete sentences GI: COMMON NORMALS: Soft to palpation and non-tender PALPATION: Yes Soft to palpation Extremity: COMMON NORMALS: no calf tenderness Neuro: COMMON NORMALS: patient oriented x3 SENSORIUM/ORIENTATION: Yes alert, Yes oriented to person, Yes oriented to place and Yes oriented to time Psych: APPEARANCE: Yes well kempt Urinary Catheter Management^: Montez: Cath Placed During This Visit: yes Reason for Continuing Indwelling Catheter: Required Immobilization for Trauma or Surgery or Anesthesia Urinary Catheter Date of Insertion: 02/03/21 Urinary Catheter Time of Insertion: 10:20 Data : 02/04/21 12:30 A&P Assessment and plan (1) Failure to progress in labor: PPD#1 doing well. routine postoperative care Status: Acute Attestations Medical Necessity Statement*: The patient had major surgery. 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
--- NOTE | 2021-02-04 08:45 | PC.NURSE ---
Ambulation in cole Pt ambulated in cole. tolerated well
[2021-02-04] MEDS: HYDROcodone-acetaminophen 5-325 mg Tablet PO ×3 (08:56→21:21)
[2021-02-04] MEDS: prenatal vitamin Capsule 1 CAP PO (08:57)
[2021-02-04] MEDS: ferrous sulfate EC 325 mg Tablet PO ×2 (08:57→18:15)
[2021-02-04 13:32] LABS: Hematocrit 34.2 % (37.0-47.0); Mean Corpuscular HGB Conc 32.2 g/dL (30.0-36.0); Mean Corpuscular Hemoglobin 26.7 pg (28.0-34.0); Mean Platelet Volume 11.7 fL (7.4-10.4); Platelet Count 254 10^3/cmm (130-400); Red Blood Count 4.12 10^6/uL (4.1-5.3); Red Cell Distribution Width 16.1 % (12.1-15.1); White Blood Count 10.6 10^3/uL (4.0-10.0)
--- NOTE | 2021-02-04 14:32 | ANE.PACU2 ---
Inpatient post-anesthesia follow up: Airway intact: Yes Vital signs: Temperature 98.7 F Pulse Rate 89 Respiratory Rate 18 Blood Pressure 133/87 Pulse Oximetry 98 Oxygen Delivery Me thod Room Air Oxygen Flow Rate Fraction of Inspir ed Oxygen Hydration adequate: Yes Nausea and vomiting: No Pain level: 2 Mental status: Baseline
--- NOTE | 2021-02-04 16:53 | PC.RESP ---
SMOKING CESSATION INFORMATION SENT TO PATIENT.
[2021-02-04] MEDS: docusate sodium 100 mg Capsule PO (18:16)
[2021-02-05] MEDS: acetaminophen 325 mg Tablet 650 MG PO (00:22)
[2021-02-05 04:01] VITALS: BP 120/84; PULSE 88; RESP 19; TEMP 36.8; O2SAT 98
[2021-02-05] MEDS: HYDROcodone-acetaminophen 5-325 mg Tablet PO ×2 (04:02→08:27)
[2021-02-05] MEDS: ibuprofen 800 mg tablet PO (08:27)
[2021-02-05] MEDS: ferrous sulfate EC 325 mg Tablet PO (08:27)
[2021-02-05] MEDS: docusate sodium 100 mg Capsule PO (08:27)
[2021-02-05] MEDS: prenatal vitamin Capsule 1 CAP PO (08:27)
--- NOTE | 2021-02-05 09:09 | PM.DCS ---
Discharge Providers Date of Admission: 02/01/21 13:00 Date of Discharge: February 05, 2021 Attending Provider at Admission: Ceci Thao MD Attending Provider at Discharge: Ceci Thao MD Primary Care Provider: Luisa Gonsalez APN Diagnoses at Discharge Discharge Diagnosis (1) state: Status: Acute Reason for Visit Reason for Visit: INDUCTION OF LABOR Hospital Course Hospital Course The patient was admitted for induction of labor at term. She was induced for 2 days and had failure to progress. She had a primary . She did well postoperatively and was ready for discharge on day #2 Physical Exam Narrative: EXAM NARRATIVE: The patient is doing well today. No concerns. Const: COMMON NORMALS: no acute distress, patient oriented x3, no limitations, alert and well nourished GENERAL APPEARANCE: cooperative, comfortable, well kempt and well developed ORIENTATION/CONSCIOUSNESS: Yes awake, Yes oriented to person, Yes oriented to place and Yes oriented to time Resp: COMMON NORMALS: normal respiratory effort EFFORT & INSPECTION: Yes able to speak in complete sentences GI: COMMON NORMALS: Soft to palpation and non-tender PALPATION: Yes Soft to palpation Extremity: COMMON NORMALS: no calf tenderness Neuro: COMMON NORMALS: patient oriented x3 SENSORIUM/ORIENTATION: Yes alert, Yes oriented to person, Yes oriented to place and Yes oriented to time Psych: APPEARANCE: Yes well kempt Urinary Catheter Management^: Montez: Cath Placed During This Visit: yes, but has since been removed by the nurse Reason for Continuing Indwelling Catheter: Perioperative Use in Selected Surgeries Urinary Catheter Date of Insertion: 02/03/21 Urinary Catheter Time of Insertion: 10:20 Date Urinary Catheter Removed: 02/04/21 Time Urinary Catheter Discontinued: 15:20 Discharge Data Data Completed and Pending: Labs from last 24 hours 02/04/21 12:30 WBC 10.6 H RBC 4.12 Hgb 11.0 L Hct 34.2 L MCV 83.0 MCH 26.7 L MCHC 32.2 RDW 16.1 H Plt Count 254 MPV 11.7 H Vitals: Last Vital Signs Temp 98.3 F 02/05/21 04:01 Pulse 88 02/05/21 04:01 Resp 19 H 02/05/21 04:01 BP 120/84 02/05/21 04:01 Pulse Ox 98 02/05/21 04:01 Discharge Plan Discharge Patient Disposition: Home Condition: Stable Prescriptions: New ibuprofen 800 mg Tablet 800 mg PO TID Qty: 30 RF: 0 hydrocodone-acetaminophen 5-325 mg Tablet 1 tab PO Q4H PRN (Reason: Moderate To Severe Pain) Qty: 30 RF: 0 docusate sodium 100 mg Capsule 100 mg PO BID Qty: 60 RF: 2 Continued (DME) Blood Glucose Test Strip See Rx Instructions .Route Qty: 120 RF: 3 metformin 500 mg tablet 500 mg PO DAILY Qty: 30 RF: 6 prenat.vits,dameon,dei-hxyx-svnfh Tablet 1 tab PO BEDTIME RF: 0 ferrous sulfate [Feosol] 325 mg (65 mg iron) tablet 325 mg PO DAILY RF: 0 (DME) blood-glucose meter Misc See Rx Instructions .Route Qty: 1 RF: 0 (DME) lancets-blood glucose strips 30 gauge combo pack See Rx Instructions .Route Qty: 420 RF: 10 (DME) breast pump Device See Rx Instructions .Route Qty: 1 RF: 0 Discharge Orders: Discharge Order (Routine); Ordered 02/05/21 Ordered By: Ceci Thao Referrals: Ceci Thao MD [Physician] - 02/11/21 10:30 am (Your 1 week incision check is scheduled for 02/11/21 @10:30. Your 6 week post- appointment is scheduled for 03/18/21 @1:45. ) Patient Instructions: Depression (DC), Expression, Collection and Storage of Breast Milk (DC), Preeclampsia and Eclampsia After Delivery (GEN), OB WHC, OB Discharge Report, OB Food/Drug Interaction Guide, Opioid Safety, OB Home Care, Abnormal Bleeding Discharge Attestations Time Spent in Discharge Care*: less than 30 min Quality Metrics Clinical Quality Measures During this hospital stay, did patient experience: None Coding Level of Care Code Acute Chg FW DC note Diagnoses state Z39.2
[2021-02-05 10:09] VITALS: BP 155/93; PULSE 94; RESP 18; TEMP 36.6; O2SAT 98
[2021-02-05 10:40] VITALS: BP 155/93; PULSE 94; RESP 18; TEMP 36.6; O2SAT 98
== END 2021-02-05 10:40 | disposition home or self-care (01) | DRG 787 ==
LOC: OPOB 13:32 → OBGYN 13:32
PROVIDERS: Admitting Provider Obstetrics & Gynecology; PCP Nurse Practitioner Family; Visit Provider Obstetrics & Gynecology
PROC: 10D00Z1 Extraction of Products of Conception, Low, Open Approach (ICD-10-PCS; CPT 59514; principal; 2021-02-03 19:35)
DX: O48.0 Post-term pregnancy (principal); O99.324 Drug use complicating childbirth; O24.425 Gestational diabetes mellitus in childbirth, controlled by oral hypoglycemic drugs; Z3A.40 40 weeks gestation of pregnancy; Z37.0 Single live birth; O16.4 Unspecified maternal hypertension, complicating childbirth; O99.214 Obesity complicating childbirth; O99.334 Smoking (tobacco) complicating childbirth; F17.210 Nicotine dependence, cigarettes, uncomplicated; O99.284 Endocrine, nutritional and metabolic diseases complicating childbirth; E28.2 Polycystic ovarian syndrome; F12.90 Cannabis use, unspecified, uncomplicated; O99.02 Anemia complicating childbirth; D64.9 Anemia, unspecified; O66.40 Failed trial of labor, unspecified; O77.0 Labor and delivery complicated by meconium in amniotic fluid; Z83.3 Family history of diabetes mellitus
CPT/HCPCS: 36415; 36416; 51702; 80306; 82962; 85025; 85027; J1885; J2250; J2370; J2765; J2795; J3010; J3490

== ENCOUNTER → 2021-02-13 08:29 | Outpatient (BNVA) | payer MEDICAID, SELFPAY | PROVIDERS: PCP Nurse Practitioner Family; Visit Provider Obstetrics & Gynecology | DX: O24.419 Gestational diabetes mellitus in pregnancy, unspecified control (principal); E28.2 Polycystic ovarian syndrome | CPT/HCPCS: 82947 ==

== ENCOUNTER 2021-08-12 12:03 | Outpatient (CLI) | payer MEDICAID, SELFPAY ==
--- NOTE | 2021-08-12 13:13 | XR_ITS ---
WS: [id number] Exam: XR lumbar spine 2-3V* [id number] Date/Time of Exam: 08/12/2021 1:28 PM Reason For Exam: LUMBAGO W/SCIATICA-R SIDE Comparison 04/27/2019 no acute fracture or dislocation. Disc spaces are relatively well maintained. Mil d spondylosis of L5. Posterior elements are intact. No significant scoliosis. XR/XR lumbar spine 2-3V* [id number] IMPRESSION: 1. No fracture or other significant finding.
== END 2021-08-12 12:04 | disposition home or self-care (01) ==
LOC: RAD 12:04
PROVIDERS: PCP Nurse Practitioner Family; Visit Provider Nurse Practitioner Family
DX: M54.40 Lumbago with sciatica, unspecified side (principal)
CPT/HCPCS: 72100

== ENCOUNTER 2022-07-16 07:56 | Outpatient (CLI) | payer MEDICAID, SELFPAY ==
--- NOTE | 2022-07-16 08:00 | MR_ITS ---
WS: [id number] MRI LUMBAR SPINE NONCONTRAST TECHNIQUE: Sagittal T1, T2 and STIR imaging. Axial T1 and T2 imaging. CLINICAL INFORMATION: M54.9 - Dorsalgia, unspecified COMPARISON: None. FINDINGS: Mild lumbar curve. No acute compression. Prior postoperative changes laminectomy defects L5-S1 with p resumed partial discectomy. L1-L2: Mild annular bulging. Mild facet arthropathy. Spinal canal and foramen are patent. L2-L3: Mild annular bulging. Mild facet arthropathy. Spinal canal and foramen are patent. L3-L4: Mild annular bulging. Mild facet arthropathy. Slight effacement of the ventral thecal sac. Mil d RIGHT and no significant LEFT foraminal narrowing. Slight narrowing of the RIGHT subarticular reces s. L4-L5: Mild annular bulging with slight impingement traversing RIGHT greater than LEFT L5 nerve roots . RIGHT eccentric disc bulging slightly encroaches on the far exiting RIGHT L5 nerve root. LEFT galen en is patent. Mild facet arthropathy. L5-S1: Postoperative changes RIGHT hemilaminectomy. Annular bulging with a shallow central protrusion slightly impinges the traversing S1 nerve roots. Mild central canal stenosis. Mild LEFT greater than RIGHT foraminal narrowing. Moderate facet arthropathy. Visualized pelvic bony structures: Normal. Paravertebral soft tissues: Normal. MR/MR lumbar spine wo con* [id number] IMPRESSION: 1. Prior postoperative changes L5-S1 hemilaminectomy with partial discectomy. 2. Annular bulging L5-S1 with a shallow central protrusion. Slight impingement traversing S1 nerve roots with mild central canal stenosis. Mild LEFT L5-S1 fo raminal narrowing. 3. Mild annular bulging L3-L4 and L4-L5 with slight narrowing of the RIGHT sub articular recess at these levels. This encroaches on the traversing RIGHT L4 an d RIGHT L5 nerve roots respectively. 4. Mild RIGHT L3-L4 and LEFT L5-S1 foraminal narrowing. 5. Moderate facet arthropathy L5-S1.
== END 2022-07-16 07:57 | disposition home or self-care (01) ==
LOC: RAD 07:59
PROVIDERS: PCP Nurse Practitioner Family; Visit Provider Specialist
DX: M51.27 Other intervertebral disc displacement, lumbosacral region (principal); M48.061 Spinal stenosis, lumbar region without neurogenic claudication; M48.07 Spinal stenosis, lumbosacral region; M47.817 Spondylosis without myelopathy or radiculopathy, lumbosacral region; M51.26 Other intervertebral disc displacement, lumbar region
CPT/HCPCS: 72148

== ENCOUNTER → 2022-09-19 15:20 | Outpatient (BNVA) | payer MEDICAID, SELFPAY | PROVIDERS: PCP Nurse Practitioner Family; Visit Provider Obstetrics & Gynecology | DX: Z01.419 Encounter for gynecological examination (general) (routine) without abnormal findings (principal) | CPT/HCPCS: 87624 ==

== ENCOUNTER → 2022-12-08 09:31 | Outpatient (BNVA) | payer MEDICAID, SELFPAY | PROVIDERS: PCP Nurse Practitioner Family; Visit Provider Anesthesiology Pain Medicine | DX: M16.12 Unilateral primary osteoarthritis, left hip (principal) | CPT/HCPCS: 73502 ==

== ENCOUNTER 2023-02-05 08:31 | Outpatient (CLI) | payer MEDICAID, SELFPAY ==
--- NOTE | 2023-02-05 08:45 | US_ITS ---
WS: [id number] URINARY BLADDER ULTRASOUND HISTORY: R33.9 - Retention of urine, unspecified COMPARISON: None available. Urinary bladder is well distended. No intraluminal filling defect. No free fluid adjacent to the urin jesús bladder. Bladder Wall Thickness: 0.4 cm. Bladder Prevoid: 10.0 cm x 7.6 cm x 7.5 cm. Prevoid volume: 296 ml. Bladder Postvoid: 1.6 cm x 1.4 cm x 2.0 cm. Postvoid volume: 2 ml. Complete emptying of the urinary bladder. IMPRESSION: Normal urinary bladder. No intraluminal mass. No post void residual.
== END 2023-02-05 08:32 | disposition home or self-care (01) ==
PROVIDERS: PCP Nurse Practitioner Family; Visit Provider Specialist
DX: R33.9 Retention of urine, unspecified (principal)
CPT/HCPCS: 76857

== ENCOUNTER → 2023-04-15 09:35 | Outpatient (BNVA) | payer BC, MEDICAID, SELFPAY | PROVIDERS: PCP Nurse Practitioner Family; Visit Provider Specialist | DX: M51.16 Intervertebral disc disorders with radiculopathy, lumbar region (principal); G43.711 Chronic migraine without aura, intractable, with status migrainosus; M79.7 Fibromyalgia; R33.9 Retention of urine, unspecified; Z86.39 Personal history of other endocrine, nutritional and metabolic disease; R29.90 Unspecified symptoms and signs involving the nervous system; G31.84 Mild cognitive impairment of uncertain or unknown etiology | CPT/HCPCS: 36415; 84443; 85651; 86140; 86160; 86162; 86235; 86255; 86376; 86431 ==

== ENCOUNTER → 2023-06-02 15:16 | Outpatient (BNVA) | payer BC, SELFPAY | PROVIDERS: PCP Nurse Practitioner Family; Visit Provider Nurse Practitioner Women's Health | DX: N94.6 Dysmenorrhea, unspecified (principal) | CPT/HCPCS: 76830 ==

== ENCOUNTER 2023-08-18 10:23 | Day surgery (SDC) | payer BC, SELFPAY ==
[2023-08-18] VITALS (15 sets, daily range): BP systolic 120–165; BP diastolic 88–116; PULSE 65–90; RESP 7–24; TEMP 36.3–36.5; O2SAT 95–100; BMI 43.4
[2023-08-18 10:54] LABS: OR HCG Qualitative Urine Negative (Negative)
[2023-08-18] MEDS: sodium chloride 0.9% 1,000 ML 30 ML IV (11:06)
[2023-08-18] MEDS: scopolamine 1.5 Patch 1 PATCH TRANSDERMA (11:06)
[2023-08-18 11:33] LABS: Basophils % 0.5 %; Eosinophils # 0.1 10^3/uL (0.0-0.8); Eosinophils % 0.8 %; Lymphocytes # 2.2 10^3/uL (0.8-4.8); Lymphocytes % 34.4 %; Mean Corpuscular HGB Conc 31.8 g/dL (30-55); Mean Corpuscular Hemoglobin 26.9 pg (27-33); Mean Corpuscular Volume 84.6 fl (85-98); Mean Platelet Volume 10.1 fL (7.4-10.4); Monocytes # 0.3 10^3/uL (0.2-0.9); Monocytes % 5.3 %; Neutrophils # 3.78 10^3/uL (1.8-7.7); Neutrophils % 58.8 %; Nucleated Red Blood Cells % 0 %; Platelet Count 297 10^3/cmm (157-399); Red Blood Count 5.32 10^6/uL (3.85-5.65); Red Cell Distribution Width 14.5 % (12.1-15.1); White Blood Count 6.42 10^3/uL (3.29-11.43)
--- NOTE | 2023-08-18 11:42 | W.PM.OPSUD ---
Surgery/Procedure H&P Update DATE OF PROCEDURE: August 18, 2023 DATE H&P PERFORMED: 08/10/23 H&P UPDATE INFORMATION: I have reviewed H&P completed within last 30 days, I have examined patient prior to procedure and No changes to prior documentation PREOP DIAGNOSIS: Abnormal uterine bleeding, pelvic pain, dysmenorrhea, dyspareunia PLANNED PROCEDURE: Operation Date: 08/18/23 11:55 Proposed Procedures p Hysteroscopy(Not Applicable) - Maximo Roper MD s Dilation And Curettage (D&C)(Not Applicable) - Maximo Roper MD s Laparoscopy(Not Applicable) - Maximo Roper MD
[2023-08-18 11:44] LABS: Alanine Aminotransferase 17 U/L (0-33); Alkaline Phosphatase 97 U/L (35-105); Anion Gap 10.8 (5-19); Aspartate Amino Transferase 14 U/L (0-32); Blood Urea Nitrogen 10 mg/dL (6-20); Calcium 9.3 mg/dL (8.5-10.5); Carbon Dioxide 27 mmol/L (22-29); Chloride 106 mmol/L (98-107); Globulin 3.6 g/dL (1.3-4.6); Glomerular Filtration Rate 118.2 mL/min (90-130); Glucose 92 mg/dL (65-115); Osmolality Calculated 289 mOsm/kg (285-295); Potassium 3.8 mmol/L (3.5-5.1); Sodium 140 mmol/L (136-145); Total Bilirubin 0.2 mg/dL (0.15-1.2); Total Protein 7.6 g/dL (6.6-8.7)
--- NOTE | 2023-08-18 12:56 | P.ANESASSM_ITS ---
Pre-Anesthetic Assessment Height/Weight: Height 1.7 m Temp Pulse Resp BP Pulse Ox O2 Del Method 97.5 F L 80 18 155/98 98 Room Air 08/18/23 10:41 08/18/23 10:41 08/18/23 10:41 08/18/23 10:41 08/18/23 10:41 08/18/23 10:56 Preop Diagnosis: Abnormal uterine bleeding, pelvic pain, dysmenorrhea, dyspareunia Operation Date: 08/18/23 11:55 Proposed Procedures p Hysteroscopy(Not Applicable) - Maximo Roper MD s Dilation And Curettage (D&C)(Not Applicable) - Maximo Roper MD s Laparoscopy(Not Applicable) - Maximo Roper MD Familial anesthetic complications: None Was Beta Real taken within 24 hours: N/A Was Clonidine taken within 24 hours: N/A Last intake: Intake Last Liquid Date 08/17/23 Last Liquid Time 20:00 Last Solid Date 08/17/23 Last Solid Time 20:00 Social Tobacco and No alcohol Exam alert, oriented x 3, clear to auscultation bilaterally and regular rate & rhythm Airway Mallampati: Class II Dentition: other (poor dentition) CV/HEM Hypertension Metabolic Morbid Obesity Anesthetic Plan ASA status: 2 Anesthesia: General Risk of > 500 ml blood loss (7ml/kg in children): No Medications/Allergies Home Medications Medication Instructions Recorded Confirmed Last Taken Type lisinopril 10 mg tablet 10 mg PO DAILY 90 days #90 tabs 10/21/22 08/17/23 08/14/23 Rx amitriptyline 25 mg tablet 25 mg PO DAILY 90 days #90 tabs 04/15/23 08/17/23 08/14/23 Rx galcanezumab-gnlm 120 mg/mL 120 mg SUBCUT ONCE #1 mL 04/15/23 08/17/23 08/04/23 Rx subcutaneous syringe (Emgality) metformin 500 mg tablet 500 mg PO DAILY 04/15/23 08/17/23 08/14/23 History ibuprofen 800 mg tablet 800 mg PO TID #90 tabs 07/23/23 08/17/23 08/15/23 Rx Allergies Allergy/AdvReac Type Severity Reaction Status Date / Time topiramate [From Topamax] Allergy Mild ALGY-Rash Verified 08/18/23 10:48 Current Medications Generic Name Dose Route Start Last Admin Trade Name Sy PRN Reason Stop Dose Admin Sodium Chloride 1,000 mls @ 30 mls/hr 08/18/23 10:45 08/18/23 11:06 Sodium Chloride 0.9% IV 08/19/23 10:44 30 mls/hr .Q24H EARL Administration PFSH Anesthesia Medical History No pertinent past medical history neghx: htn,dm,dvt/pe,herpes ---denies partner with herpes PCP: Cassidy Gonsalez PCOS (polycystic ovarian syndrome) History of hypothyroidism (~2013) never been on medication Migraines w/o aura Surgical History History of 02/03/2021 History of back surgery (~2013) ruptured disc L5-S1 History of tonsillectomy and adenoidectomy (~1997) Family History Grandmother Breast cancer Paternal--dx age 50's Diabetes paternal Heart disease maternal Hypertension paternal, and maternal Grandfather Diabetes paternal Hypertension paternal Denies family history of Colon cancer Ovarian cancer Hypercholesteremia Uterine cancer Stroke Social History Smoking and tobacco/nicotine status: current every day tobacco/nicotine user cigarettes Packs smoked per day: 0.5 Alcohol intake: never Substance/Drug Use: never Data Anesthesia 08/18/23 10:50 08/18/23 10:50 Short CBC 08/18/23 Range/Units 10:50 WBC 6.42 (3.29-11.43) 10^3/uL Hgb 14.30 (11.27-16.99) g/dL Hct 45.0 (36-47) % MCV 84.6 L (85-98) fl Plt Count 297 (157-399) 10^3/cmm Neut % (Auto) 58.8 % Neut # (Auto) 3.78 (1.8-7.7) 10^3/uL BMP 08/18/23 10:50 Sodium 140 Potassium 3.8 Chloride 106 Carbon Dioxide 27 BUN 10 Creatinine 0.6 Glucose 92 Calcium 9.3 Liver Function 08/18/23 Range/Units 10:50 Total Bilirubin 0.2 (0.15-1.2) mg/dL AST 14 (0-32) U/L ALT 17 (0-33) U/L Alkaline Phosphatase 97 (35-105) U/L Albumin 4.0 (3.5-5.2) g/dL Blood Bank 08/18/23 10:50 Blood Type A Positive Rho(D) Type Rh positive Antibody Screen Negative Cardiac Studies: 2 No Data to Display
[2023-08-18] MEDS: ceFAZolin 3,000 MG in sodium chloride 0.9% (plus) 100 ML 200 MG IV (13:44)
[2023-08-18] MEDS: lidocaine-epi 2% PF 1:200,000 20 mL SDV INJECTION (14:31)
[2023-08-18] MEDS: BUPivacaine 0.5% INJ 10 mL INJECTION (14:33)
--- NOTE | 2023-08-18 15:02 | P.OP_ITS ---
Operative Report Date of procedure: August 18, 2023 Pre-op diagnosis: Dysmenorrhea Pelvic pain Abnormal uterine bleeding Post-op diagnosis: same Post-op findings: Endometriosis Procedure done: Diagnostic laparoscopy Hysteroscopy Dilation and curettage via MyoSure Specimens removed/disposition: Endometrial curettings Surgeon: Maximo Roper MD Estimated blood loss (mL): 15 IV fluids (mL): 900 Urine output (mL): 600 Complications: None Findings: Endometriosis Procedure: After informed consent, the patient was taken to the operating room where general anesthesia was administered. The patient was examined under anesthesia and found to have a normal uterus with normal adnexa. She was placed in the dorsal lithotomy position and prepped and draped in sterile fashion. Pre- Procedure Time-Out verifying the correct patient identity, correct procedure verified with consent, correct site and side, correct patient position, availability of correct implants and any special equipment or requirements was performed and acknowledge by the OR team. A weighted speculum was placed in the vagina, and the anterior lip of cervix was grasped with the single toothed tenaculum. A uterine manipulator was advanced into the endocervical. Tenaculum was removed after uterine manipulator was secured. The speculum was removed from the vagina. An intraumbilical incision was made with a scalpel. While tenting up on the abdomen, a Verres needle with sleeve was admitted into the intra-abdominal cavity. A saline drop test was performed and noted to be within normal limits. Pneumoperitoneum was attained with 4 liters of carbon dioxide. The Verres needle was removed. A 5 mm trocar and sleeve were admitted into the abdomen and laparoscopic confirmation of location was achieved, A second incision was made 3 cm above the symphysis pubis, and a 5 mm trocar and sleeve were admitted into the abdomen under direct, laparoscopic visualization without complication. A survey revealed normal abdominal anatomy. The pelvic survey shows normal size uterus with white endometriosis lesions serosa, normal left and right adnexa. A 5 mm blunt probe was advanced through the second trocar sleeve, and light manipulation of ovaries and uterus to assess the posterior aspects was performed. Carbon dioxide was allowed to escape from the abdomen. The instruments were removed, and skin cover with a bandage. Then proceeded to perform a hysteroscopy and D&C via MyoSure. A sterile weight speculum was placed in the vagina. The uterus was then gently sounded to 8 cm, and the cervix was dilated. The 0 degrees MyoSure hysteroscope was advanced gently to the uterine fundus while visualizing the monitor. Survey of the uterine cavity showed: Secretory endometrium, the fundus shows secretory endometrium; left ostium was visualized, and lateral wall with secretory endometrium; right ostium visualized, and lateral wall with secretory endometrium; anterior and posterior lennon are with secretory endometrium; endocervical canal is normal. The MyoSure device was advanced and the direct visualization the endometrium was morcellated without complication. At the end of morcellation the fluid deficit was 370 mL and was estimated at approximately 200 mL were on the floor. There was minimal bleeding noted and the tenaculum removed with goad hemostasis noted. The instruments were removed from the vagina, and excellent hemostasis was noted. The patient tolerated the procedure well, and sponge, lap and needle count were correct times two. The patient taken to the recovery room in good condition.
[2023-08-18] MEDS: diphenhydrAMINE 50 mg/mL SDV 1mL 25 MG IVP (15:36)
--- NOTE | 2023-08-18 15:43 | PC.NURSE ---
1543 - CHRISTIAN Hernandez at pts side - notified of pts blood pressure and continued wretching with nausea -
--- NOTE | 2023-08-18 16:02 | PC.NURSE ---
pt has had multiple nausea medicatins due to po NV - pt does not want narcotic at this time due to nausea
--- NOTE | 2023-08-18 17:20 | ANE.PACU2 ---
Inpatient post-anesthesia follow up: Airway intact: Yes Vital signs: Temperature 97.6 F Pulse Rate 70 Respiratory Rate 17 Blood Pressure 129/89 Pulse Oximetry 97 Oxygen Delivery Me thod Room Air Oxygen Flow Rate Fraction of Inspir ed Oxygen Hydration adequate: Yes Nausea and vomiting: No Pain level: 1 Mental status: Baseline
== END 2023-08-18 17:21 | disposition home or self-care (01) ==
PROVIDERS: PCP Nurse Practitioner Family; Visit Provider Obstetrics & Gynecology
PROC: 0UJD8ZZ Inspection of Uterus and Cervix, Via Natural or Artificial Opening Endoscopic (ICD-10-PCS; CPT 58555; principal; 2023-08-18 11:45)
PROC: (CPT 58120; 2023-08-18 11:45)
PROC: (CPT 49320; 2023-08-18 11:45)
DX: N93.9 Abnormal uterine and vaginal bleeding, unspecified (principal); I10 Essential (primary) hypertension; E66.01 Morbid (severe) obesity due to excess calories; Z68.41 Body mass index [BMI] 40.0-44.9, adult; Z79.84 Long term (current) use of oral hypoglycemic drugs; E28.2 Polycystic ovarian syndrome; F17.210 Nicotine dependence, cigarettes, uncomplicated
CPT/HCPCS: 58558; 36415; 80053; 81025; 84703; 85025; 86850; 86900; 88305; A4216; J0330; J0690; J1100; J1200; J2250; J2405; J2704; J2710; J3010; J3490; J7030

== ENCOUNTER → 2024-06-30 13:56 | Outpatient (BNVA) | payer BC, SELFPAY | PROVIDERS: PCP Nurse Practitioner Family; Visit Provider Nurse Practitioner Women's Health | DX: Z30.46 Encounter for surveillance of implantable subdermal contraceptive (principal) | CPT/HCPCS: 81025 ==

== ENCOUNTER 2024-08-09 14:09 | Outpatient (CLI) | payer BC, SELFPAY ==
--- NOTE | 2024-08-09 14:00 | MM_ITS ---
WS: [id number] ADDITIONAL VIEWS RIGHT MAMMOGRAM WITH DIGITAL BREAST TOMOSYNTHESIS. RIGHT BREAST ULTRASOUND HISTORY: N63.0 - Unspecified lump in unspecified breast, 29-year-old. COMPARISON: None available. RIGHT MAMMOGRAM: Spot compression views and true ML with digital breast tomosynthesis and SM. Breast composition: The breasts are almost entirely fatty. There are a few benign calcifications scattered throughout the breast. Triangular markers are placed along the inferior RIGHT breast at the area of concern. There is no underlying mass identified. No skin thickening. No suspicious grouping of calcifications. Ultrasound to follow. RIGHT BREAST ULTRASOUND 2-D and color Doppler imaging submitted. Ultrasound is directed to the 6-7 o'clock axis, 5 cm from the nipple in the area of concern. There is no mammographic or ultrasound abnormality. MM/MM diag RT tomosynthesis [id number] IMPRESSION: BI-RADS: 2 - Benign. FOLLOW UP: Age 39 No ultrasound or mammographic abnormality RIGHT breast.
--- NOTE | 2024-08-09 14:15 | US_ITS ---
WS: [id number] ADDITIONAL VIEWS RIGHT MAMMOGRAM WITH DIGITAL BREAST TOMOSYNTHESIS. RIGHT BREAST ULTRASOUND HISTORY: N63.0 - Unspecified lump in unspecified breast, 29-year-old. COMPARISON: None available. RIGHT MAMMOGRAM: Spot compression views and true ML with digital breast tomosynthesis and SM. Breast composition: The breasts are almost entirely fatty. There are a few benign calcifications scattered throughout the breast. Triangular markers are placed along the inferior RIGHT breast at the area of concern. There is no underlying mass identified. No skin thickening. No suspicious grouping of calcifications. Ultrasound to follow. RIGHT BREAST ULTRASOUND 2-D and color Doppler imaging submitted. Ultrasound is directed to the 6-7 o'clock axis, 5 cm from the nipple in the area of concern. There is no mammographic or ultrasound abnormality. US/US breast RT complete [id number] IMPRESSION: BI-RADS: 2 - Benign. FOLLOW UP: Age 39 No ultrasound or mammographic abnormality RIGHT breast.
== END 2024-08-09 14:10 | disposition home or self-care (01) ==
PROVIDERS: PCP Nurse Practitioner Family; Visit Provider Nurse Practitioner Women's Health
DX: N63.13 Unspecified lump in the right breast, lower outer quadrant (principal); R92.313 Mammographic fatty tissue density, bilateral breasts; R92.1 Mammographic calcification found on diagnostic imaging of breast
CPT/HCPCS: 76641; 77061; G0279